=== PATIENT | female | born 1980 | race Asian ===

== ENCOUNTER 2019-01-29 16:16 | Inpatient (IN) | payer MEDICAID ==
[~2019-01-29] VITALS: Ht 152.4 cm; Wt 49.0 kg
[~2019-01-29 16:16] MED LIST: DULO20CA30 PO; LURA20TA PO; PANT40TA25 PO
[2019-01-29 20:40] VITALS: BP 132/105
[2019-01-29] MEDS: LORazepam 2 MG TABLET PO PRN (22:47)
[2019-01-29] MEDS: HALOPERIDOL 5 MG TABLET PO PRN (22:47)
[2019-01-29 23:00] VITALS: BP 127/87
[2019-01-30 00:05] VITALS: BP 128/90
[2019-01-30] MEDS: ZOLPIDEM TARTRATE 10 MG TABLET PO PRN (00:09)
[2019-01-30 07:14] LABS: BASOPHILS % (AUTO) 0.6 % (0.0-2.0); EOSINOPHILS % (AUTO) 1.3 % (1.0-6.0); HEMATOCRIT 41.1 % (36-46); HEMOGLOBIN 13.9 g/dL (12.0-16.0); LYMPHOCYTES # (AUTO) 2.3 K/uL (1.0-4.8); LYMPHOCYTES % (AUTO) 36.9 % (22.0-44.0); MEAN CORPUSCULAR HEMOGLOBIN 32.4 pg (26.0-34.0); MEAN CORPUSCULAR HGB CONC 33.9 G/dL (31.0-37.0); MEAN CORPUSCULAR VOLUME 96 fL (80-100); MONOCYTES # (AUTO) 1.1 K/uL (0.1-1.0); MONOCYTES % (AUTO) 18.3 % (2.0-9.0); NEUTROPHILS # (AUTO) 2.6 K/uL (1.8-7.7); NEUTROPHILS % (AUTO) 42.9 % (40.0-70.0); PLATELET COUNT (AUTO) 379 K/uL (150-450); RED CELL DISTRIBUTION WIDTH 13.1 % (11.5-14.5)
[2019-01-30 07:51] LABS: ALANINE AMINOTRANSFERASE 64 U/L (12-78); ALBUMIN 3.6 g/dL (3.4-5.0); ALKALINE PHOSPHATASE 134 U/L (46-116); ANION GAP 9 mmol/L (8-16); ASPARTATE AMINOTRANSFERASE 89 U/L (15-37); CALCIUM, TOTAL 9.3 mg/dL (8.8-10.5); CARBON DIOXIDE 29 mmol/L (22-29); CHLORIDE 99 mmol/L (98-107); CHOL/HDL RATIO 3.2 (3.9-5.7); CHOLESTEROL 191 mg/dL (131-200); CREATININE 0.82 mg/dL (0.60-1.30); FREE T4 (FREE THYROXINE) 1.36 ng/dL (0.76-1.46); GLOMERULAR FILTR. RATE CALC > 60 mL/min (>60); GLUCOSE,RANDOM 74 mg/dL (70-110); HCG,QUANTITATIVE < 1 mIU/mL (0-6); HDL CHOLESTEROL 59 mg/dL (40-60); LDL CHOL (CALC.) 119 mg/dL (0-130); POTASSIUM 3.9 mmol/L (3.5-5.1); SODIUM SERUM 137 mmol/L (136-145); TOTAL PROTEIN, SERUM 7.7 g/dL (6.4-8.2); TRIGLYCERIDES 63 mg/dL (15-150); UREA NITROGEN, BLOOD 11 mg/dL (7-18)
[2019-01-30] MEDS: LORazepam 2 MG TABLET PO PRN ×2 (12:04→19:23)
[2019-01-30] MEDS: HALOPERIDOL 5 MG TABLET PO PRN ×2 (12:04→19:23)
[2019-01-30 16:24] VITALS: BP 143/89
[2019-01-30] MEDS ORDERED: PETROLATUM,WHITE 28 GM JELLY TP PRN (17:30)
[2019-01-30] MEDS ORDERED: LOPERAMIDE HCL 2 MG CAPSULE PO PRN (17:30)
[2019-01-30] MEDS ORDERED: ONDANSETRON HCL 4 MG TABLET PO PRN (17:30)
[2019-01-30] MEDS ORDERED: DOCUSATE SODIUM 100 MG CAPSULE PO PRN (17:30)
[2019-01-30] MEDS ORDERED: ALBUTEROL SULFATE HFA 90 MCG/PUFF 8 GM INHALER IH PRN (17:30)
[2019-01-30] MEDS ORDERED: NICOTINE 14 MG/24 HOUR PATCH TD PRN (17:30)
[2019-01-30] MEDS ORDERED: CloNIDine HCL 0.1 MG TABLET PO PRN (17:30)
[2019-01-30] MEDS ORDERED: GuaiFENesin/D-METHORPHAN [SUGAR-FREE] 200-20MG/10 ML SYRUP UDCUP PO PRN (17:30)
[2019-01-30] MEDS ORDERED: MAGNESIUM HYDROXIDE SUSPENSION 30 ML UDCUP PO PRN (17:30)
[2019-01-30] MEDS ORDERED: MAG HYDROX/AL HYDROX/SIMETH ES 30 ML SUSPENSION UDCUP PO PRN (17:30)
[2019-01-30] MEDS ORDERED: ACETAMINOPHEN 325 MG TABLET PO PRN (17:30)
[2019-01-30] MEDS ORDERED: IBUPROFEN 400 MG TABLET PO PRN (17:30)
[2019-01-31 00:23] VITALS: BP 110/62
[2019-01-31] MEDS: PANTOPRAZOLE SODIUM 40 MG DR TABLET PO SCH (08:38)
[2019-01-31] MEDS: DULoxetine HCL 20 MG CAPSULE PO SCH (09:58)
[2019-01-31 16:18] VITALS: BP 130/80
[2019-01-31] MEDS ORDERED: LURASIDONE HCL 40 MG TABLET PO SCH (17:00)
[2019-01-31] MEDS: LORazepam 2 MG TABLET PO PRN (19:25)
[2019-01-31] MEDS: ZOLPIDEM TARTRATE 10 MG TABLET PO PRN (21:03)
[2019-02-01 06:15] VITALS: BP 133/88
[2019-02-01 08:11] VITALS: BP 106/79
[2019-02-01] MEDS: DULoxetine HCL 20 MG CAPSULE PO SCH (08:21)
[2019-02-01] MEDS: PANTOPRAZOLE SODIUM 40 MG DR TABLET PO SCH (08:22)
[2019-02-01] MEDS: LORazepam 2 MG TABLET PO PRN (10:01)
== END 2019-02-01 12:15 | disposition home or self-care (01) | DRG 750 ==
LOC: B2S 22:40
PROVIDERS: ATTEND Psychiatry & Neurology Child & Adolescent Psychiatry
DX: F20.0 Paranoid schizophrenia (principal); R74.0 Nonspecific elevation of levels of transaminase and lactic acid dehydrogenase [LDH]; B19.20 Unspecified viral hepatitis C without hepatic coma; K21.9 Gastro-esophageal reflux disease without esophagitis; F10.10 Alcohol abuse, uncomplicated; G89.29 Other chronic pain; F41.9 Anxiety disorder, unspecified; M54.9 Dorsalgia, unspecified; Z91.14 Patient's other noncompliance with medication regimen; Z88.0 Allergy status to penicillin
CPT/HCPCS: 84439; 84443; G0480

== ENCOUNTER 2019-02-06 10:15 | Emergency (ER) | payer MEDICAID, OTHER ==
[~2019-02-06] VITALS: Ht 154.9 cm; Wt 49.5 kg
[2019-02-06 11:00] VITALS: BP 153/99
[2019-02-06] MEDS ORDERED: LURA60TA PO (11:40)
[2019-02-06] MEDS ORDERED: LORazepam 1 MG TABLET PO ONE (11:45)
== END 2019-02-06 11:54 | disposition home or self-care (01) ==
LOC: EMS 10:17
DX: F41.9 Anxiety disorder, unspecified (principal); F15.10 Other stimulant abuse, uncomplicated; F17.210 Nicotine dependence, cigarettes, uncomplicated; Z88.0 Allergy status to penicillin

== ENCOUNTER 2019-02-06 13:55 | Emergency (ER) | payer OTHER ==
[~2019-02-06] VITALS: Ht 157.5 cm; Wt 49.5 kg
[~2019-02-06 13:55] MED LIST changes: +LURA60TA PO
[2019-02-06 14:16] VITALS: BP 129/94
== END 2019-02-06 15:10 | disposition left against medical advice (07) ==
LOC: EMS 13:57
DX: R51 Headache (principal); Z53.21 Procedure and treatment not carried out due to patient leaving prior to being seen by health care provider

== ENCOUNTER 2019-04-11 07:40 | Inpatient (IN) | payer MEDICAID ==
[~2019-04-11] VITALS: Ht 152.4 cm; Wt 47.7 kg
[~2019-04-11 07:40] MED LIST changes: -LURA20TA PO
[2019-04-11 08:12] VITALS: BP 156/76
[2019-04-11] MEDS ORDERED: OLANZapine 5 MG RAPDIS TABLET PO PRN (08:30)
[2019-04-11] MEDS: LORazepam 2 MG TABLET PO PRN (11:27)
[2019-04-11] MEDS ORDERED: PROMETHAZINE HCL 25 MG TABLET PO PRN (11:30)
[2019-04-11] MEDS ORDERED: HydrOXYzine PAMOATE 50 MG CAPSULE PO PRN (11:30)
[2019-04-11] MEDS ORDERED: ACETAMINOPHEN 325 MG TABLET PO PRN (11:30)
[2019-04-11] MEDS ORDERED: TUBERCULIN, PURIFIED PROTEIN DERIVATIVE 5 TU/0.1 ML SYRINGE ID ONE (11:30)
[2019-04-11] MEDS ORDERED: MAG HYDROX/AL HYDROX/SIMETH ES 30 ML SUSPENSION UDCUP PO PRN (11:30)
[2019-04-11] MEDS ORDERED: LOPERAMIDE HCL 2 MG CAPSULE PO PRN (11:30)
[2019-04-11] MEDS ORDERED: MAGNESIUM HYDROXIDE SUSPENSION 30 ML UDCUP PO PRN (11:30)
[2019-04-11] MEDS: GABAPENTIN 100 MG CAPSULE PO SCH ×3 (12:58→20:01)
[2019-04-11] MEDS: GuaiFENesin/D-METHORPHAN [SUGAR-FREE] 200-20MG/10 ML SYRUP UDCUP PO PRN (12:59)
[2019-04-11 16:15] VITALS: BP 118/81
[2019-04-11] MEDS: THIAMINE HCL 100 MG TABLET PO SCH (16:34)
[2019-04-11] MEDS: ZOLPIDEM TARTRATE 10 MG TABLET PO PRN (21:34)
[2019-04-12] MEDS: GuaiFENesin/D-METHORPHAN [SUGAR-FREE] 200-20MG/10 ML SYRUP UDCUP PO PRN (04:12)
[2019-04-12] MEDS ORDERED: LURASIDONE HCL 40 MG TABLET PO SCH (07:00)
[2019-04-12 08:14] LABS: BASOPHILS % (AUTO) 0.7 % (0.0-2.0); EOSINOPHILS % (AUTO) 1.9 % (1.0-6.0); HEMATOCRIT 38.8 % (36-46); LYMPHOCYTES # (AUTO) 1.7 K/uL (1.0-4.8); MEAN CORPUSCULAR HEMOGLOBIN 31.8 pg (26.0-34.0); MEAN CORPUSCULAR HGB CONC 33.5 G/dL (31.0-37.0); MEAN CORPUSCULAR VOLUME 95 fL (80-100); MONOCYTES # (AUTO) 1.1 K/uL (0.1-1.0); MONOCYTES % (AUTO) 19.3 % (2.0-9.0); NEUTROPHILS # (AUTO) 2.7 K/uL (1.8-7.7); NEUTROPHILS % (AUTO) 48.1 % (40.0-70.0); PLATELET COUNT (AUTO) 317 K/uL (150-450); RED CELL DISTRIBUTION WIDTH 13.3 % (11.5-14.5)
[2019-04-12] MEDS: NALTREXONE HCL 50 MG TABLET PO SCH (08:17)
[2019-04-12] MEDS: PANTOPRAZOLE SODIUM 40 MG DR TABLET PO SCH (08:17)
[2019-04-12] MEDS: GABAPENTIN 100 MG CAPSULE PO SCH ×2 (08:17→12:04)
[2019-04-12] MEDS: FOLIC ACID 1 MG TABLET PO SCH (08:17)
[2019-04-12] MEDS: THIAMINE HCL 100 MG TABLET PO SCH ×2 (08:17→17:44)
[2019-04-12] MEDS: MULTIVITAMINS WITH MINERALS, THERAPEUTIC TABLET PO SCH (08:17)
[2019-04-12 08:35] LABS: HEMOGLOBIN A1C 5.4 % (4.5-6.2)
[2019-04-12 08:51] LABS: ALANINE AMINOTRANSFERASE 62 U/L (12-78); ALBUMIN 3.1 g/dL (3.4-5.0); ALKALINE PHOSPHATASE 139 U/L (46-116); ANION GAP 8 mmol/L (8-16); ASPARTATE AMINOTRANSFERASE 79 U/L (15-37); BILIRUBIN,TOTAL 0.3 mg/dL (0.1-1.0); CALCIUM, TOTAL 8.8 mg/dL (8.8-10.5); CARBON DIOXIDE 28 mmol/L (22-29); CHLORIDE 102 mmol/L (98-107); CHOL/HDL RATIO 3.9 (3.9-5.7); CHOLESTEROL 181 mg/dL (131-200); CREATININE 0.85 mg/dL (0.60-1.30); FREE T4 (FREE THYROXINE) 1.11 ng/dL (0.76-1.46); GLOMERULAR FILTR. RATE CALC > 60 mL/min (>60); GLUCOSE,RANDOM 86 mg/dL (70-110); HCG,QUANTITATIVE < 1 mIU/mL (0-6); HDL CHOLESTEROL 46 mg/dL (40-60); LDL CHOL (CALC.) 126 mg/dL (0-130); POTASSIUM 3.2 mmol/L (3.5-5.1); SODIUM SERUM 138 mmol/L (136-145); THYROID STIMULATING HORMONE 0.66 uIU/mL (0.36-3.74); TOTAL PROTEIN, SERUM 6.9 g/dL (6.4-8.2); TRIGLYCERIDES 47 mg/dL (15-150); UREA NITROGEN, BLOOD 14 mg/dL (7-18)
[2019-04-12] MEDS ORDERED: DULoxetine HCL 20 MG CAPSULE PO SCH (09:00)
[2019-04-12] MEDS: GABAPENTIN 300 MG CAPSULE PO SCH ×2 (16:21→20:07)
[2019-04-12 16:28] VITALS: BP 113/72
[2019-04-12] MEDS ORDERED: POTASSIUM CHLORIDE 20 MEQ ER TABLET PO ONE (17:15)
[2019-04-12] MEDS: ZOLPIDEM TARTRATE 10 MG TABLET PO PRN (21:01)
[2019-04-13 03:59] VITALS: BP 124/92
[2019-04-13] MEDS: LORazepam 2 MG TABLET PO PRN (04:00)
[2019-04-13 08:13] LABS: ANION GAP 6 mmol/L (8-16); CALCIUM, TOTAL 8.7 mg/dL (8.8-10.5); CARBON DIOXIDE 28 mmol/L (22-29); CHLORIDE 104 mmol/L (98-107); CREATININE 0.77 mg/dL (0.60-1.30); GLOMERULAR FILTR. RATE CALC > 60 mL/min (>60); GLUCOSE,RANDOM 80 mg/dL (70-110); POTASSIUM 3.9 mmol/L (3.5-5.1); SODIUM SERUM 138 mmol/L (136-145); UREA NITROGEN, BLOOD 9 mg/dL (7-18)
[2019-04-13] MEDS: GABAPENTIN 300 MG CAPSULE PO SCH ×4 (08:26→20:27)
[2019-04-13] MEDS: FOLIC ACID 1 MG TABLET PO SCH (08:26)
[2019-04-13] MEDS: NALTREXONE HCL 50 MG TABLET PO SCH (08:26)
[2019-04-13] MEDS: ARIPiprazole 15 MG TABLET PO SCH (08:26)
[2019-04-13] MEDS: DULoxetine HCL 30 MG CAPSULE PO SCH (08:27)
[2019-04-13] MEDS: MULTIVITAMINS WITH MINERALS, THERAPEUTIC TABLET PO SCH (08:27)
[2019-04-13] MEDS: THIAMINE HCL 100 MG TABLET PO SCH ×2 (08:27→16:56)
[2019-04-13 08:29] VITALS: BP 113/64
[2019-04-13] MEDS: PANTOPRAZOLE SODIUM 40 MG DR TABLET PO SCH (11:51)
[2019-04-13 16:08] VITALS: BP 113/79
[2019-04-13] MEDS ORDERED: GABA-531 PO (16:42)
[2019-04-13] MEDS ORDERED: TRAZ-257 PO (16:42)
[2019-04-13] MEDS ORDERED: ARIP15TA2 PO (16:42)
[2019-04-13] MEDS ORDERED: NALT50TA PO (16:42)
[2019-04-13] MEDS ORDERED: DULO30CA2 PO (16:42)
[2019-04-13] MEDS: ZOLPIDEM TARTRATE 10 MG TABLET PO PRN (20:30)
[2019-04-14 01:42] VITALS: BP 115/86
[2019-04-14] MEDS ORDERED: PANT40TA25 PO ×2 (07:14→07:18)
[2019-04-14] MEDS: DULoxetine HCL 30 MG CAPSULE PO SCH (08:42)
[2019-04-14] MEDS: THIAMINE HCL 100 MG TABLET PO SCH (08:42)
[2019-04-14] MEDS: GABAPENTIN 300 MG CAPSULE PO SCH ×2 (08:42→13:09)
[2019-04-14] MEDS: ARIPiprazole 15 MG TABLET PO SCH (08:42)
[2019-04-14] MEDS: NALTREXONE HCL 50 MG TABLET PO SCH (08:43)
[2019-04-14] MEDS: MULTIVITAMINS WITH MINERALS, THERAPEUTIC TABLET PO SCH (08:43)
[2019-04-14] MEDS: PANTOPRAZOLE SODIUM 40 MG DR TABLET PO SCH (08:43)
[2019-04-14] MEDS: FOLIC ACID 1 MG TABLET PO SCH (08:43)
[2019-04-14 08:45] VITALS: BP 138/78
== END 2019-04-14 13:15 | disposition home or self-care (01) | DRG 750 ==
LOC: B2S 08:34
PROVIDERS: ADMIT Psychiatry & Neurology Psychiatry; ATTEND Psychiatry & Neurology Psychiatry
DX: F25.9 Schizoaffective disorder, unspecified (principal); Z91.19 Patient's noncompliance with other medical treatment and regimen; B19.20 Unspecified viral hepatitis C without hepatic coma; F12.90 Cannabis use, unspecified, uncomplicated; F15.90 Other stimulant use, unspecified, uncomplicated; F17.200 Nicotine dependence, unspecified, uncomplicated; G89.4 Chronic pain syndrome; K21.9 Gastro-esophageal reflux disease without esophagitis; Z88.0 Allergy status to penicillin; Z59.9 Problem related to housing and economic circumstances, unspecified; Z65.3 Problems related to other legal circumstances; Z82.49 Family history of ischemic heart disease and other diseases of the circulatory system; Z83.3 Family history of diabetes mellitus
CPT/HCPCS: 83036; 84439; 84443; 86592

== ENCOUNTER 2019-07-02 23:24 | Emergency (ER) | payer MEDICAID, OTHER ==
[~2019-07-02] VITALS: Ht 152.4 cm; Wt 50.0 kg
[~2019-07-02 23:24] MED LIST changes: +ARIP15TA2 PO; -DULO20CA30 PO; +DULO30CA2 PO; +GABA-531 PO; -LURA60TA PO; +NALT50TA PO; +TRAZ-257 PO
[2019-07-03 00:42] LABS: BASOPHILS % (AUTO) 0.5 % (0.0-2.0); EOSINOPHILS % (AUTO) 0.3 % (1.0-6.0); HEMATOCRIT 39.4 % (36-46); HEMOGLOBIN 13.2 g/dL (12.0-16.0); LYMPHOCYTES # (AUTO) 2.3 K/uL (1.0-4.8); LYMPHOCYTES % (AUTO) 27.5 % (22.0-44.0); MEAN CORPUSCULAR HEMOGLOBIN 30.7 pg (26.0-34.0); MEAN CORPUSCULAR HGB CONC 33.4 G/dL (31.0-37.0); MEAN CORPUSCULAR VOLUME 92 fL (80-100); MONOCYTES # (AUTO) 1.4 K/uL (0.1-1.0); MONOCYTES % (AUTO) 16.7 % (2.0-9.0); NEUTROPHILS # (AUTO) 4.5 K/uL (1.8-7.7); PLATELET COUNT (AUTO) 378 K/uL (150-450); RED CELL DISTRIBUTION WIDTH 12.8 % (11.5-14.5)
[2019-07-03] MEDS ORDERED: LORazepam 2 MG TABLET PO ONE (00:45)
[2019-07-03 01:03] LABS: ALANINE AMINOTRANSFERASE 48 U/L (12-78); ALKALINE PHOSPHATASE 106 U/L (46-116); ANION GAP 12 mmol/L (8-16); ASPARTATE AMINOTRANSFERASE 66 U/L (15-37); BILIRUBIN,TOTAL 0.6 mg/dL (0.1-1.0); CALCIUM, TOTAL 9.4 mg/dL (8.8-10.5); CARBON DIOXIDE 26 mmol/L (22-29); CHLORIDE 97 mmol/L (98-107); CREATININE 1.02 mg/dL (0.60-1.30); GLOMERULAR FILTR. RATE CALC 60 mL/min (>60); GLUCOSE,RANDOM 105 mg/dL (70-110); SODIUM SERUM 135 mmol/L (136-145); TOTAL PROTEIN, SERUM 8.4 g/dL (6.4-8.2); UREA NITROGEN, BLOOD 13 mg/dL (7-18)
[2019-07-03 01:15] LABS: POTASSIUM 2.9 mmol/L (3.5-5.1)
[2019-07-03] MEDS ORDERED: POTASSIUM CHLORIDE 10% 40 MEQ/30 ML LIQUID UDCUP PO ONE ×2 (01:30→01:50)
[2019-07-03 02:06] LABS: HCG,QUANTITATIVE < 1 mIU/mL (0-6)
[2019-07-03 02:33] VITALS: BP 127/81
[2019-07-04] MEDS ORDERED: GABA-533 PO (17:41)
== END 2019-07-03 02:36 | disposition home or self-care (01) ==
LOC: EMS 23:24
DX: F41.9 Anxiety disorder, unspecified (principal); E87.6 Hypokalemia; F15.10 Other stimulant abuse, uncomplicated; F17.210 Nicotine dependence, cigarettes, uncomplicated; Z88.0 Allergy status to penicillin
CPT/HCPCS: 36415; 80053; 84702; 85025; 99285; 99406; G0480

== ENCOUNTER 2019-07-04 12:51 | Inpatient (IN) | payer MEDICAID, OTHER ==
[~2019-07-04] VITALS: Ht 152.4 cm; Wt 51.3 kg
[2019-07-04 14:59] LABS: BASOPHILS % (AUTO) 0.8 % (0.0-2.0); EOSINOPHILS % (AUTO) 0.7 % (1.0-6.0); HEMATOCRIT 40.4 % (36-46); HEMOGLOBIN 13.2 g/dL (12.0-16.0); LYMPHOCYTES # (AUTO) 1.5 K/uL (1.0-4.8); LYMPHOCYTES % (AUTO) 28.6 % (22.0-44.0); MEAN CORPUSCULAR HEMOGLOBIN 30.4 pg (26.0-34.0); MEAN CORPUSCULAR HGB CONC 32.6 G/dL (31.0-37.0); MEAN CORPUSCULAR VOLUME 93 fL (80-100); MONOCYTES # (AUTO) 0.8 K/uL (0.1-1.0); MONOCYTES % (AUTO) 14.6 % (2.0-9.0); NEUTROPHILS % (AUTO) 55.3 % (40.0-70.0); PLATELET COUNT (AUTO) 381 K/uL (150-450); RED BLOOD CELL COUNT(AUTO) 4.33 MIL/uL (4.00-5.20); RED CELL DISTRIBUTION WIDTH 13.1 % (11.5-14.5)
[2019-07-04] MEDS ORDERED: LORazepam 1 MG TABLET PO ONE (15:15)
[2019-07-04 15:23] LABS: ANION GAP 6 mmol/L (8-16); CARBON DIOXIDE 28 mmol/L (22-29); CHLORIDE 101 mmol/L (98-107); GLOMERULAR FILTR. RATE CALC > 60 mL/min (>60); GLUCOSE,RANDOM 89 mg/dL (70-110); POTASSIUM 3.7 mmol/L (3.5-5.1); SODIUM SERUM 135 mmol/L (136-145); UREA NITROGEN, BLOOD 13 mg/dL (7-18)
[2019-07-04 15:31] LABS: ALANINE AMINOTRANSFERASE 51 U/L (12-78); ALBUMIN 3.8 g/dL (3.4-5.0); ALKALINE PHOSPHATASE 110 U/L (46-116); ASPARTATE AMINOTRANSFERASE 69 U/L (15-37); BILIRUBIN,TOTAL 0.3 mg/dL (0.1-1.0); HCG,QUANTITATIVE < 1 mIU/mL (0-6); TOTAL PROTEIN, SERUM 8.1 g/dL (6.4-8.2)
[2019-07-04] MEDS ORDERED: GABA-533 PO (17:41)
[2019-07-04] MEDS: ZOLPIDEM TARTRATE 10 MG TABLET PO PRN (20:37)
[2019-07-04] MEDS: HALOPERIDOL 5 MG TABLET PO PRN (20:37)
[2019-07-04 20:51] VITALS: BP 128/93
[2019-07-05 01:17] VITALS: BP 117/82
[2019-07-05 08:18] VITALS: BP 104/71
[2019-07-05 08:55] LABS: CHOL/HDL RATIO 4.6 (3.9-5.7)
[2019-07-05] MEDS ORDERED: OMEPRAZOLE 20 MG CAPSULE PO PRN (11:00)
[2019-07-05] MEDS ORDERED: DOCUSATE SODIUM 100 MG CAPSULE PO PRN (11:00)
[2019-07-05] MEDS ORDERED: IBUPROFEN 600 MG TABLET PO PRN (11:00)
[2019-07-05] MEDS ORDERED: BENZOCAINE/MENTHOL LOZENGE MM PRN (11:00)
[2019-07-05] MEDS ORDERED: ALBUTEROL SULFATE HFA 90 MCG/PUFF 8 GM INHALER IH PRN (11:00)
[2019-07-05] MEDS ORDERED: BACITRACIN 28.4 GM OINTMENT TP PRN (11:00)
[2019-07-05] MEDS ORDERED: CloNIDine HCL 0.1 MG TABLET PO PRN (11:00)
[2019-07-05] MEDS ORDERED: MAGNESIUM HYDROXIDE SUSPENSION 30 ML UDCUP PO PRN (11:00)
[2019-07-05] MEDS ORDERED: PETROLATUM,WHITE 28 GM JELLY TP PRN (11:00)
[2019-07-05] MEDS ORDERED: LOPERAMIDE HCL 2 MG CAPSULE PO PRN (11:00)
[2019-07-05] MEDS ORDERED: MAG HYDROX/AL HYDROX/SIMETH ES 30 ML SUSPENSION UDCUP PO PRN (11:00)
[2019-07-05] MEDS ORDERED: ONDANSETRON HCL 4 MG TABLET PO PRN (11:00)
[2019-07-05] MEDS: LORazepam 2 MG TABLET PO PRN (12:29)
[2019-07-05] MEDS: GABAPENTIN 400 MG CAPSULE PO SCH ×3 (12:29→21:16)
[2019-07-05 17:10] VITALS: BP 101/72
[2019-07-05] MEDS: TraZODone HCL 100 MG TABLET PO SCH (21:16)
[2019-07-06 04:40] VITALS: BP 100/76
[2019-07-06] MEDS: DULoxetine HCL 30 MG CAPSULE PO SCH (08:48)
[2019-07-06] MEDS: ARIPiprazole 15 MG TABLET PO SCH (08:48)
[2019-07-06] MEDS: GABAPENTIN 400 MG CAPSULE PO SCH ×4 (08:49→20:24)
[2019-07-06] MEDS: NALTREXONE HCL 50 MG TABLET PO SCH (08:49)
[2019-07-06] MEDS: LORazepam 2 MG TABLET PO PRN ×2 (10:10→17:43)
[2019-07-06 16:07] VITALS: BP 110/64
[2019-07-06] MEDS: TraZODone HCL 100 MG TABLET PO SCH (20:24)
[2019-07-07 03:28] VITALS: BP 120/66
[2019-07-07 08:22] VITALS: BP 124/53
[2019-07-07] MEDS: NALTREXONE HCL 50 MG TABLET PO SCH (08:38)
[2019-07-07] MEDS: DULoxetine HCL 30 MG CAPSULE PO SCH (08:38)
[2019-07-07] MEDS: GABAPENTIN 400 MG CAPSULE PO SCH ×4 (08:38→20:34)
[2019-07-07] MEDS: ARIPiprazole 15 MG TABLET PO SCH (08:38)
[2019-07-07] MEDS: ACETAMINOPHEN 325 MG TABLET PO PRN (11:31)
[2019-07-07 16:00] VITALS: BP 106/64
[2019-07-07] MEDS: TraZODone HCL 100 MG TABLET PO SCH (20:34)
[2019-07-08 01:30] VITALS: BP 129/82
[2019-07-08] MEDS: ZOLPIDEM TARTRATE 10 MG TABLET PO PRN ×2 (01:34→20:41)
[2019-07-08 08:18] VITALS: BP 115/72
[2019-07-08] MEDS: NALTREXONE HCL 50 MG TABLET PO SCH (08:55)
[2019-07-08] MEDS: GABAPENTIN 400 MG CAPSULE PO SCH ×4 (08:55→20:41)
[2019-07-08] MEDS: ARIPiprazole 15 MG TABLET PO SCH (08:55)
[2019-07-08] MEDS: DULoxetine HCL 30 MG CAPSULE PO SCH (08:55)
[2019-07-08] MEDS: LORazepam 2 MG TABLET PO PRN (12:05)
[2019-07-08 16:06] VITALS: BP 112/66
[2019-07-08] MEDS: TraZODone HCL 100 MG TABLET PO SCH (20:41)
[2019-07-09 06:22] VITALS: BP 105/73
[2019-07-09 08:22] VITALS: BP 118/90
[2019-07-09] MEDS: GABAPENTIN 400 MG CAPSULE PO SCH ×4 (09:01→21:10)
[2019-07-09] MEDS: NALTREXONE HCL 50 MG TABLET PO SCH (09:01)
[2019-07-09] MEDS: ARIPiprazole 15 MG TABLET PO SCH (09:01)
[2019-07-09] MEDS: DULoxetine HCL 30 MG CAPSULE PO SCH (09:01)
[2019-07-09] MEDS: LORazepam 2 MG TABLET PO PRN ×2 (09:06→16:14)
[2019-07-09 16:00] VITALS: BP 105/69
[2019-07-09] MEDS: TraZODone HCL 100 MG TABLET PO SCH (21:10)
[2019-07-09] MEDS: ZOLPIDEM TARTRATE 10 MG TABLET PO PRN (21:10)
[2019-07-10 01:25] VITALS: BP 99/72
[2019-07-10 08:18] VITALS: BP 116/63
[2019-07-10] MEDS: ARIPiprazole 15 MG TABLET PO SCH (09:19)
[2019-07-10] MEDS: NALTREXONE HCL 50 MG TABLET PO SCH (09:19)
[2019-07-10] MEDS: GABAPENTIN 400 MG CAPSULE PO SCH ×4 (09:19→20:57)
[2019-07-10] MEDS: DULoxetine HCL 30 MG CAPSULE PO SCH (09:19)
[2019-07-10] MEDS: LORazepam 2 MG TABLET PO PRN ×2 (09:23→17:13)
[2019-07-10] MEDS: HALOPERIDOL 5 MG TABLET PO PRN (10:34)
[2019-07-10 17:37] VITALS: BP 98/63
[2019-07-10] MEDS: ZOLPIDEM TARTRATE 10 MG TABLET PO PRN (20:57)
[2019-07-10] MEDS: TraZODone HCL 100 MG TABLET PO SCH (20:57)
[2019-07-11 03:21] VITALS: BP 107/62
[2019-07-11] MEDS: LORazepam 2 MG TABLET PO PRN ×4 (04:17→20:17)
[2019-07-11 08:39] VITALS: BP 127/68
[2019-07-11] MEDS: DULoxetine HCL 30 MG CAPSULE PO SCH (08:50)
[2019-07-11] MEDS: GABAPENTIN 400 MG CAPSULE PO SCH ×4 (08:50→20:17)
[2019-07-11] MEDS: NALTREXONE HCL 50 MG TABLET PO SCH (08:50)
[2019-07-11] MEDS: ARIPiprazole 15 MG TABLET PO SCH (08:50)
[2019-07-11 16:25] VITALS: BP 149/75
[2019-07-11] MEDS: TraZODone HCL 100 MG TABLET PO SCH (20:17)
[2019-07-11 21:17] VITALS: BP 105/65
[2019-07-12 04:34] VITALS: BP 100/67
[2019-07-12 08:13] VITALS: BP 112/63
[2019-07-12 08:19] LABS: BAND NEUTROPHILS % (MANUAL) 0 % (0-5)
[2019-07-12 08:29] LABS: HEMATOCRIT 36.8 % (36-46); HEMOGLOBIN 12.1 g/dL (12.0-16.0); MEAN CORPUSCULAR HEMOGLOBIN 30.9 pg (26.0-34.0); MEAN CORPUSCULAR HGB CONC 32.8 G/dL (31.0-37.0); MEAN CORPUSCULAR VOLUME 94 fL (80-100); PLATELET COUNT (AUTO) 381 K/uL (150-450); RED CELL DISTRIBUTION WIDTH 12.9 % (11.5-14.5)
[2019-07-12 08:43] LABS: ANION GAP 6 mmol/L (8-16); CALCIUM, TOTAL 9.4 mg/dL (8.8-10.5); CARBON DIOXIDE 28 mmol/L (22-29); CHLORIDE 105 mmol/L (98-107); CREATININE 0.82 mg/dL (0.60-1.30); GLOMERULAR FILTR. RATE CALC > 60 mL/min (>60); GLUCOSE,RANDOM 90 mg/dL (70-110); POTASSIUM 3.3 mmol/L (3.5-5.1); SODIUM SERUM 139 mmol/L (136-145); UREA NITROGEN, BLOOD 18 mg/dL (7-18)
[2019-07-12] MEDS: ARIPiprazole 15 MG TABLET PO SCH (08:52)
[2019-07-12] MEDS: DULoxetine HCL 30 MG CAPSULE PO SCH (08:52)
[2019-07-12] MEDS: GABAPENTIN 400 MG CAPSULE PO SCH ×4 (08:52→20:26)
[2019-07-12] MEDS: NALTREXONE HCL 50 MG TABLET PO SCH (08:52)
[2019-07-12 09:47] LABS: LYMPHOCYTES % (MANUAL) 54 % (22-44); MONOCYTES % (MANUAL) 3 % (2-9); SEGMENTED NEUTROPHILS % 43 % (40-70)
[2019-07-12 16:22] VITALS: BP 121/76
[2019-07-12] MEDS: LORazepam 2 MG TABLET PO PRN (17:57)
[2019-07-12] MEDS: ZOLPIDEM TARTRATE 10 MG TABLET PO PRN (20:26)
[2019-07-12] MEDS: TraZODone HCL 100 MG TABLET PO SCH (20:26)
[2019-07-12] MEDS ORDERED: POTASSIUM CHLORIDE 20 MEQ ER TABLET PO ONE (22:45)
[2019-07-13 01:22] VITALS: BP 100/72
[2019-07-13] MEDS: LORazepam 2 MG TABLET PO PRN ×3 (01:55→16:29)
[2019-07-13 07:57] LABS: BAND NEUTROPHILS % (MANUAL) 0 % (0-5)
[2019-07-13 08:09] VITALS: BP 100/67
[2019-07-13 08:17] LABS: HEMATOCRIT 39.1 % (36-46); HEMOGLOBIN 12.6 g/dL (12.0-16.0); MEAN CORPUSCULAR HEMOGLOBIN 29.9 pg (26.0-34.0); MEAN CORPUSCULAR HGB CONC 32.2 G/dL (31.0-37.0); MEAN CORPUSCULAR VOLUME 93 fL (80-100); PLATELET COUNT (AUTO) 387 K/uL (150-450); RED BLOOD CELL COUNT(AUTO) 4.21 MIL/uL (4.00-5.20); RED CELL DISTRIBUTION WIDTH 12.7 % (11.5-14.5)
[2019-07-13 08:17] LABS: AMPHET/METH SCREEN,URINE NEGATIVE (NEGATIVE); BARBITURATE SCREEN, URINE NEGATIVE (NEGATIVE); BENZODIAZEPINES SCREEN,URINE NEGATIVE (NEGATIVE); CANNABINOID SCREEN,URINE NEGATIVE (NEGATIVE); COCAINE SCREEN,URINE NEGATIVE (NEGATIVE); METHADONE SCREEN, URINE NEGATIVE (NEGATIVE); OPIATE SCREEN,URINE NEGATIVE (NEGATIVE)
[2019-07-13 08:18] LABS: APPEARANCE,URINE CLOUDY (CLEAR); BILIRUBIN,URINE NEGATIVE (NEGATIVE); GLUCOSE, URINE (UA) NEGATIVE (NEGATIVE); KETONES,URINE NEGATIVE (NEGATIVE); LEUKOCYTE ESTERASE ,URINE SMALL (NEGATIVE); NITRATE,URINE POSITIVE (NEGATIVE); OCCULT BLOOD,URINE NEGATIVE (NEGATIVE); PHENCYCLIDINE SCREEN,URINE NEGATIVE (NEGATIVE); PROTEIN,URINE NEGATIVE (NEGATIVE); UROBILINOGEN,URINE 0.2 mg/dL (<=1.0)
[2019-07-13 08:58] LABS: BACTERIA,URINE Many /HPF (None Seen); RBC,URINE None Seen /HPF (0-2); YEAST,URINE None Seen /HPF (None Seen)
[2019-07-13 08:59] LABS: SQUAMOUS EPITHELIAL CELL,UR Few /LPF (None Seen)
[2019-07-13] MEDS: DULoxetine HCL 30 MG CAPSULE PO SCH (09:06)
[2019-07-13] MEDS: ARIPiprazole 15 MG TABLET PO SCH (09:06)
[2019-07-13] MEDS: NALTREXONE HCL 50 MG TABLET PO SCH (09:06)
[2019-07-13] MEDS: GABAPENTIN 400 MG CAPSULE PO SCH ×4 (09:07→20:41)
[2019-07-13 09:44] LABS: LYMPHOCYTES % (MANUAL) 41 % (22-44); MONOCYTES % (MANUAL) 4 % (2-9); SEGMENTED NEUTROPHILS % 55 % (40-70)
[2019-07-13] MEDS: ACETAMINOPHEN 325 MG TABLET PO PRN (16:29)
[2019-07-13 16:54] VITALS: BP 126/68
[2019-07-13] MEDS: TraZODone HCL 100 MG TABLET PO SCH (20:41)
[2019-07-13] MEDS: ZOLPIDEM TARTRATE 10 MG TABLET PO PRN (20:41)
[2019-07-13] MEDS: PHENAZOPYRIDINE HCL 100 MG TABLET PO SCH (21:12)
[2019-07-14 06:05] VITALS: BP 112/72
[2019-07-14 08:17] VITALS: BP 110/69
[2019-07-14] MEDS: PHENAZOPYRIDINE HCL 100 MG TABLET PO SCH (08:22)
[2019-07-14] MEDS: GABAPENTIN 400 MG CAPSULE PO SCH ×2 (08:22→12:11)
[2019-07-14] MEDS: NALTREXONE HCL 50 MG TABLET PO SCH (08:22)
[2019-07-14] MEDS: ARIPiprazole 15 MG TABLET PO SCH (08:22)
[2019-07-14] MEDS: DULoxetine HCL 30 MG CAPSULE PO SCH (08:22)
[2019-07-14] MEDS: LORazepam 2 MG TABLET PO PRN (11:45)
[2019-07-14] MEDS ORDERED: PHEN-846 PO (12:49)
[2019-07-14] MEDS ORDERED: CEPH-582 PO (12:49)
== END 2019-07-14 13:00 | disposition home or self-care (01) | DRG 750 ==
LOC: EMS 12:53 → B3A 17:53
PROVIDERS: ADMIT Psychiatry & Neurology Psychiatry; ATTEND Psychiatry & Neurology Psychiatry
DX: F20.0 Paranoid schizophrenia (principal); Z91.14 Patient's other noncompliance with medication regimen; E78.5 Hyperlipidemia, unspecified; K21.9 Gastro-esophageal reflux disease without esophagitis; Z82.49 Family history of ischemic heart disease and other diseases of the circulatory system; Z87.891 Personal history of nicotine dependence; Z83.3 Family history of diabetes mellitus
CPT/HCPCS: 83735; 84100; 84132; 85007; 87086; G0480; Q0162

== ENCOUNTER 2019-07-23 12:03 | Inpatient (IN) | payer MEDICAID ==
[~2019-07-23] VITALS: Ht 152.4 cm; Wt 48.5 kg
[~2019-07-23 12:03] MED LIST changes: +CEPH-582 PO; +GABA-1201 PO; -GABA-531 PO; -PANT40TA25 PO; +PHEN-846 PO
[2019-07-23 13:04] VITALS: BP 139/82
[2019-07-23] MEDS: LORazepam 2 MG TABLET PO PRN (14:23)
[2019-07-23 14:28] VITALS: BP 125/85
[2019-07-23] MEDS ORDERED: PNEUMOCOCCAL VACCINE POLYVALENT 0.5 ML VIAL [PPSV23] IM ONE (14:45)
[2019-07-23 16:00] VITALS: BP 110/75
[2019-07-23] MEDS: GABAPENTIN 400 MG CAPSULE PO SCH (20:10)
[2019-07-23] MEDS ORDERED: TraZODone HCL 100 MG TABLET PO SCH (21:00)
[2019-07-24 00:12] VITALS: BP 102/63
[2019-07-24 07:15] LABS: BASOPHILS % (AUTO) 0.7 % (0.0-2.0); EOSINOPHILS % (AUTO) 2.1 % (1.0-6.0); HEMATOCRIT 39.5 % (36-46); LYMPHOCYTES # (AUTO) 1.8 K/uL (1.0-4.8); LYMPHOCYTES % (AUTO) 34.1 % (22.0-44.0); MEAN CORPUSCULAR HEMOGLOBIN 30.6 pg (26.0-34.0); MEAN CORPUSCULAR VOLUME 93 fL (80-100); MONOCYTES # (AUTO) 0.7 K/uL (0.1-1.0); MONOCYTES % (AUTO) 14.4 % (2.0-9.0); NEUTROPHILS # (AUTO) 2.5 K/uL (1.8-7.7); NEUTROPHILS % (AUTO) 48.7 % (40.0-70.0); PLATELET COUNT (AUTO) 398 K/uL (150-450); RED BLOOD CELL COUNT(AUTO) 4.25 MIL/uL (4.00-5.20); RED CELL DISTRIBUTION WIDTH 13.3 % (11.5-14.5)
[2019-07-24 07:47] LABS: ALANINE AMINOTRANSFERASE 28 U/L (12-78); ALBUMIN 3.3 g/dL (3.4-5.0); ALKALINE PHOSPHATASE 95 U/L (46-116); ANION GAP 9 mmol/L (8-16); ASPARTATE AMINOTRANSFERASE 35 U/L (15-37); BILIRUBIN,TOTAL 0.3 mg/dL (0.1-1.0); CARBON DIOXIDE 29 mmol/L (22-29); CHLORIDE 103 mmol/L (98-107); CHOL/HDL RATIO 4.1 (3.9-5.7); CHOLESTEROL 180 mg/dL (131-200); CREATININE 0.84 mg/dL (0.60-1.30); FREE T4 (FREE THYROXINE) 1.06 ng/dL (0.76-1.46); GLOMERULAR FILTR. RATE CALC > 60 mL/min (>60); GLUCOSE,RANDOM 90 mg/dL (70-110); HCG,QUANTITATIVE < 1 mIU/mL (0-6); HDL CHOLESTEROL 44 mg/dL (40-60); LDL CHOL (CALC.) 116 mg/dL (0-130); POTASSIUM 3.5 mmol/L (3.5-5.1); SODIUM SERUM 141 mmol/L (136-145); THYROID STIMULATING HORMONE 0.46 uIU/mL (0.36-3.74); TRIGLYCERIDES 101 mg/dL (15-150); UREA NITROGEN, BLOOD 22 mg/dL (7-18)
[2019-07-24] MEDS: GABAPENTIN 400 MG CAPSULE PO SCH ×3 (08:29→16:21)
[2019-07-24] MEDS: ARIPiprazole 15 MG TABLET PO SCH (08:29)
[2019-07-24] MEDS ORDERED: DULoxetine HCL 30 MG CAPSULE PO SCH (09:00)
[2019-07-24 10:35] VITALS: BP 100/60
[2019-07-24] MEDS: LORazepam 2 MG TABLET PO PRN (14:52)
[2019-07-24 19:21] VITALS: BP 92/61
[2019-07-24] MEDS: ZOLPIDEM TARTRATE 10 MG TABLET PO PRN (20:38)
[2019-07-25 00:21] VITALS: BP 102/68
[2019-07-25] MEDS: ARIPiprazole 15 MG TABLET PO SCH (08:20)
[2019-07-25] MEDS: DULoxetine HCL 20 MG CAPSULE PO SCH (08:20)
[2019-07-25] MEDS: GABAPENTIN 300 MG CAPSULE PO SCH ×3 (08:20→16:52)
[2019-07-25] MEDS: LORazepam 2 MG TABLET PO PRN ×3 (09:52→22:20)
[2019-07-25 10:02] VITALS: BP 100/60
[2019-07-25 17:54] VITALS: BP 103/77
[2019-07-26 00:33] VITALS: BP 99/68
[2019-07-26 08:03] VITALS: BP 98/68
[2019-07-26] MEDS: ARIPiprazole 15 MG TABLET PO SCH (08:25)
[2019-07-26] MEDS: GABAPENTIN 300 MG CAPSULE PO SCH ×3 (08:25→16:56)
[2019-07-26] MEDS: LORazepam 2 MG TABLET PO PRN ×2 (08:25→18:17)
[2019-07-26] MEDS: DULoxetine HCL 20 MG CAPSULE PO SCH (08:27)
[2019-07-26] MEDS: OXYBUTYNIN CHLORIDE 5 MG TABLET PO SCH ×3 (08:27→16:56)
[2019-07-26] MEDS ORDERED: CloNIDine HCL 0.1 MG TABLET PO PRN (10:00)
[2019-07-26] MEDS ORDERED: ACETAMINOPHEN 325 MG TABLET PO PRN (10:00)
[2019-07-26] MEDS ORDERED: MAG HYDROX/AL HYDROX/SIMETH ES 30 ML SUSPENSION UDCUP PO PRN (10:00)
[2019-07-26] MEDS ORDERED: DOCUSATE SODIUM 100 MG CAPSULE PO PRN (10:00)
[2019-07-26] MEDS ORDERED: LOPERAMIDE HCL 2 MG CAPSULE PO PRN (10:00)
[2019-07-26] MEDS ORDERED: BACITRACIN 28.4 GM OINTMENT TP PRN (10:00)
[2019-07-26] MEDS ORDERED: OMEPRAZOLE 20 MG CAPSULE PO PRN (10:00)
[2019-07-26] MEDS ORDERED: ALBUTEROL SULFATE HFA 90 MCG/PUFF 8 GM INHALER IH PRN (10:00)
[2019-07-26] MEDS ORDERED: PETROLATUM,WHITE 28 GM JELLY TP PRN (10:00)
[2019-07-26] MEDS ORDERED: ONDANSETRON HCL 4 MG TABLET PO PRN (10:00)
[2019-07-26] MEDS ORDERED: IBUPROFEN 600 MG TABLET PO PRN (10:00)
[2019-07-26] MEDS ORDERED: MAGNESIUM HYDROXIDE SUSPENSION 30 ML UDCUP PO PRN (10:00)
[2019-07-26] MEDS ORDERED: BENZOCAINE/MENTHOL LOZENGE MM PRN (10:00)
[2019-07-26 16:03] VITALS: BP 114/67
[2019-07-27 00:07] VITALS: BP 133/79
[2019-07-27] MEDS: ARIPiprazole 15 MG TABLET PO SCH (08:15)
[2019-07-27] MEDS: OXYBUTYNIN CHLORIDE 5 MG TABLET PO SCH ×3 (08:15→16:13)
[2019-07-27] MEDS: DULoxetine HCL 20 MG CAPSULE PO SCH (08:15)
[2019-07-27] MEDS: GABAPENTIN 300 MG CAPSULE PO SCH ×3 (08:16→16:13)
[2019-07-27 08:33] VITALS: BP 99/60
[2019-07-27] MEDS: LORazepam 2 MG TABLET PO PRN ×2 (09:49→14:54)
[2019-07-27 16:17] VITALS: BP 129/73
[2019-07-27] MEDS: ZOLPIDEM TARTRATE 10 MG TABLET PO PRN (22:09)
[2019-07-28 00:12] VITALS: BP 131/82
[2019-07-28 08:03] VITALS: BP 100/68
[2019-07-28] MEDS: ARIPiprazole 15 MG TABLET PO SCH (08:05)
[2019-07-28] MEDS: GABAPENTIN 300 MG CAPSULE PO SCH ×3 (08:05→16:06)
[2019-07-28] MEDS: OXYBUTYNIN CHLORIDE 5 MG TABLET PO SCH ×3 (08:05→16:06)
[2019-07-28] MEDS: DULoxetine HCL 20 MG CAPSULE PO SCH (08:05)
[2019-07-28 09:25] VITALS: BP 120/72
[2019-07-28] MEDS: LORazepam 2 MG TABLET PO PRN ×2 (09:25→14:34)
[2019-07-28 16:06] VITALS: BP 97/73
[2019-07-28] MEDS ORDERED: LORATADINE 10 MG TABLET PO PRN (16:15)
[2019-07-28] MEDS ORDERED: GuaiFENesin/D-METHORPHAN [SUGAR-FREE] 200-20MG/10 ML SYRUP UDCUP PO PRN (16:15)
[2019-07-28] MEDS: ZOLPIDEM TARTRATE 10 MG TABLET PO PRN (20:39)
[2019-07-29 00:06] VITALS: BP 95/61
[2019-07-29] MEDS: GABAPENTIN 300 MG CAPSULE PO SCH ×3 (08:07→17:09)
[2019-07-29] MEDS: OXYBUTYNIN CHLORIDE 5 MG TABLET PO SCH ×3 (08:07→17:09)
[2019-07-29] MEDS: DULoxetine HCL 20 MG CAPSULE PO SCH (08:07)
[2019-07-29] MEDS: LORazepam 2 MG TABLET PO PRN ×3 (08:07→20:41)
[2019-07-29] MEDS: ARIPiprazole 15 MG TABLET PO SCH (08:07)
[2019-07-29 08:19] VITALS: BP 109/68
[2019-07-29] MEDS: HALOPERIDOL 5 MG TABLET PO PRN (10:40)
[2019-07-29 16:17] VITALS: BP 112/69
[2019-07-29] MEDS: ZOLPIDEM TARTRATE 10 MG TABLET PO PRN (20:41)
[2019-07-30] MEDS: LORazepam 2 MG TABLET PO PRN ×2 (04:14→09:48)
[2019-07-30 04:39] VITALS: BP 120/66
[2019-07-30] MEDS: OXYBUTYNIN CHLORIDE 5 MG TABLET PO SCH ×3 (08:14→17:10)
[2019-07-30] MEDS: GABAPENTIN 300 MG CAPSULE PO SCH ×3 (08:15→17:10)
[2019-07-30] MEDS: DULoxetine HCL 20 MG CAPSULE PO SCH (08:15)
[2019-07-30] MEDS: ARIPiprazole 15 MG TABLET PO SCH (08:15)
[2019-07-30 08:18] VITALS: BP 120/69
[2019-07-30] MEDS: HALOPERIDOL 5 MG TABLET PO PRN (11:42)
[2019-07-30 16:26] VITALS: BP 100/52
[2019-07-30] MEDS: ZOLPIDEM TARTRATE 10 MG TABLET PO PRN (21:43)
[2019-07-31 05:53] VITALS: BP 107/62
[2019-07-31] MEDS: DULoxetine HCL 20 MG CAPSULE PO SCH (08:25)
[2019-07-31] MEDS: OXYBUTYNIN CHLORIDE 5 MG TABLET PO SCH ×3 (08:25→16:01)
[2019-07-31] MEDS: ARIPiprazole 15 MG TABLET PO SCH (08:25)
[2019-07-31] MEDS: GABAPENTIN 300 MG CAPSULE PO SCH ×3 (08:25→16:01)
[2019-07-31 08:28] VITALS: BP 106/62
[2019-07-31] MEDS: LORazepam 2 MG TABLET PO PRN ×3 (10:23→20:43)
[2019-07-31 17:32] VITALS: BP 100/60
[2019-07-31] MEDS: ZOLPIDEM TARTRATE 10 MG TABLET PO PRN (20:03)
[2019-08-01 00:35] VITALS: BP 98/58
[2019-08-01 01:13] VITALS: BP 100/68
[2019-08-01] MEDS: LORazepam 2 MG TABLET PO PRN (01:49)
[2019-08-01 05:58] VITALS: BP 115/65
[2019-08-01] MEDS: HALOPERIDOL 5 MG TABLET PO PRN (06:47)
[2019-08-01] MEDS: DULoxetine HCL 20 MG CAPSULE PO SCH (08:06)
[2019-08-01] MEDS: ARIPiprazole 15 MG TABLET PO SCH (08:06)
[2019-08-01] MEDS: GABAPENTIN 300 MG CAPSULE PO SCH ×2 (08:06→12:52)
[2019-08-01] MEDS: OXYBUTYNIN CHLORIDE 5 MG TABLET PO SCH ×2 (08:06→12:52)
[2019-08-01 08:18] VITALS: BP 133/62
[2019-08-01] MEDS ORDERED: GABA-1181 PO (12:45)
[2019-08-01] MEDS ORDERED: OXYB5TAB27 PO (12:48)
[2019-08-01] MEDS ORDERED: DULO20CA30 PO (12:48)
[2019-08-01] MEDS ORDERED: OXYBUTYNIN CHLORIDE 5 MG TABLET PO SCH (13:00)
[2019-08-01] MEDS ORDERED: GABAPENTIN 300 MG CAPSULE PO SCH (13:00)
[2019-08-02] MEDS ORDERED: DULoxetine HCL 20 MG CAPSULE PO SCH (09:00)
== END 2019-08-01 14:00 | disposition home or self-care (01) | DRG 750 ==
LOC: B2S 13:25 → B3A 07-29 00:05
PROVIDERS: ADMIT Psychiatry & Neurology Psychiatry; ATTEND Psychiatry & Neurology Psychiatry
DX: F25.9 Schizoaffective disorder, unspecified (principal); R45.851 Suicidal ideations; E78.5 Hyperlipidemia, unspecified; F10.10 Alcohol abuse, uncomplicated; F32.9 Major depressive disorder, single episode, unspecified; F41.9 Anxiety disorder, unspecified; Z83.3 Family history of diabetes mellitus; G89.29 Other chronic pain; M54.9 Dorsalgia, unspecified; K59.00 Constipation, unspecified; G47.00 Insomnia, unspecified; Z72.0 Tobacco use
CPT/HCPCS: 84439; 84443; 87081

== ENCOUNTER 2019-10-06 12:32 | Inpatient (IN) | payer MEDICAID, OTHER ==
[~2019-10-06] VITALS: Ht 154.9 cm; Wt 50.3 kg
[~2019-10-06 12:32] MED LIST changes: -CEPH-582 PO; +DULO20CA27 PO; -DULO30CA2 PO; +GABA-1181 PO; -GABA-1201 PO; -NALT50TA PO; +OXYB5TAB27 PO; -PHEN-846 PO; -TRAZ-257 PO
[2019-10-06] MEDS ORDERED: LORazepam 1 MG TABLET PO ONE (13:00)
[2019-10-06] MEDS ORDERED: DiphenhydrAMINE HCL 50 MG/ML VIAL IM ONE (13:00)
[2019-10-06] MEDS ORDERED: LORazepam 2 MG/ML VIAL IM ONE ×2 (13:00→13:15)
[2019-10-06] MEDS ORDERED: HALOPERIDOL LACTATE 5 MG/ML VIAL IM ONE ×2 (13:00→13:15)
[2019-10-06 13:07] LABS: BASOPHILS % (AUTO) 0.5 % (0.0-2.0); EOSINOPHILS % (AUTO) 0.5 % (1.0-6.0); HEMATOCRIT 39.7 % (36-46); HEMOGLOBIN 13.4 g/dL (12.0-16.0); LYMPHOCYTES # (AUTO) 1.8 K/uL (1.0-4.8); LYMPHOCYTES % (AUTO) 23.6 % (22.0-44.0); MEAN CORPUSCULAR HEMOGLOBIN 30.1 pg (26.0-34.0); MEAN CORPUSCULAR HGB CONC 33.7 G/dL (31.0-37.0); MEAN CORPUSCULAR VOLUME 89 fL (80-100); MONOCYTES # (AUTO) 0.9 K/uL (0.1-1.0); MONOCYTES % (AUTO) 12.2 % (2.0-9.0); NEUTROPHILS # (AUTO) 4.9 K/uL (1.8-7.7); NEUTROPHILS % (AUTO) 63.2 % (40.0-70.0); PLATELET COUNT (AUTO) 472 K/uL (150-450); RED BLOOD CELL COUNT(AUTO) 4.44 MIL/uL (4.00-5.20); RED CELL DISTRIBUTION WIDTH 14.6 % (11.5-14.5)
[2019-10-06 13:28] LABS: ANION GAP 13 mmol/L (8-16); CALCIUM, TOTAL 10.1 mg/dL (8.8-10.5); CARBON DIOXIDE 26 mmol/L (22-29); CHLORIDE 103 mmol/L (98-107); GLOMERULAR FILTR. RATE CALC > 60 mL/min (>60); GLUCOSE,RANDOM 120 mg/dL (70-110); POTASSIUM 4.3 mmol/L (3.5-5.1); SODIUM SERUM 142 mmol/L (136-145); UREA NITROGEN, BLOOD 13 mg/dL (7-18)
[2019-10-06 13:40] LABS: ALANINE AMINOTRANSFERASE 35 U/L (12-78); ALBUMIN 4.2 g/dL (3.4-5.0); ALKALINE PHOSPHATASE 99 U/L (46-116); ASPARTATE AMINOTRANSFERASE 51 U/L (15-37); BILIRUBIN,TOTAL 0.8 mg/dL (0.1-1.0); HCG,QUANTITATIVE 1 mIU/mL (0-6); TOTAL PROTEIN, SERUM 9.5 g/dL (6.4-8.2)
[2019-10-06 17:21] VITALS: BP 103/78
[2019-10-06] MEDS: NICOTINE 21 MG/24 HOUR PATCH TD SCH (17:32)
[2019-10-06] MEDS: HALOPERIDOL 5 MG TABLET PO PRN (17:32)
[2019-10-06] MEDS: LORazepam 2 MG TABLET PO PRN (17:32)
[2019-10-07 01:38] VITALS: BP 120/74
[2019-10-07] MEDS ORDERED: PETROLATUM,WHITE 28 GM JELLY TP PRN (07:00)
[2019-10-07] MEDS ORDERED: IBUPROFEN 600 MG TABLET PO PRN (07:00)
[2019-10-07] MEDS ORDERED: ACETAMINOPHEN 325 MG TABLET PO PRN (07:00)
[2019-10-07] MEDS ORDERED: ONDANSETRON HCL 4 MG TABLET PO PRN (07:00)
[2019-10-07] MEDS ORDERED: CloNIDine HCL 0.1 MG TABLET PO PRN (07:00)
[2019-10-07] MEDS ORDERED: DOCUSATE SODIUM 100 MG CAPSULE PO PRN (07:00)
[2019-10-07] MEDS ORDERED: OMEPRAZOLE 20 MG CAPSULE PO PRN (07:00)
[2019-10-07] MEDS ORDERED: BENZOCAINE/MENTHOL LOZENGE MM PRN (07:00)
[2019-10-07] MEDS ORDERED: LOPERAMIDE HCL 2 MG CAPSULE PO PRN (07:00)
[2019-10-07] MEDS ORDERED: MAGNESIUM HYDROXIDE SUSPENSION 30 ML UDCUP PO PRN (07:00)
[2019-10-07] MEDS ORDERED: ALBUTEROL SULFATE HFA 90 MCG/PUFF 8 GM INHALER IH PRN (07:00)
[2019-10-07] MEDS ORDERED: BACITRACIN 28.4 GM OINTMENT TP PRN (07:00)
[2019-10-07] MEDS ORDERED: MAG HYDROX/AL HYDROX/SIMETH ES 30 ML SUSPENSION UDCUP PO PRN (07:00)
[2019-10-07 08:28] VITALS: BP 118/70
[2019-10-07] MEDS: NICOTINE 21 MG/24 HOUR PATCH TD SCH (09:00)
[2019-10-07] MEDS: HALOPERIDOL 5 MG TABLET PO PRN (09:44)
[2019-10-07] MEDS: LORazepam 2 MG TABLET PO PRN (09:44)
[2019-10-07 16:17] VITALS: BP 112/72
[2019-10-08 06:42] VITALS: BP 93/63
[2019-10-08] MEDS: LORazepam 2 MG TABLET PO PRN ×2 (07:03→17:06)
[2019-10-08 08:07] VITALS: BP 105/62
[2019-10-08 08:21] LABS: CHOL/HDL RATIO 5.8 (3.9-5.7)
[2019-10-08] MEDS: NICOTINE 21 MG/24 HOUR PATCH TD SCH (08:54)
[2019-10-08] MEDS: ARIPiprazole 15 MG TABLET PO SCH (08:54)
[2019-10-08] MEDS: DULoxetine HCL 20 MG CAPSULE PO SCH (08:54)
[2019-10-08] MEDS: GABAPENTIN 300 MG CAPSULE PO SCH ×3 (08:54→17:06)
[2019-10-08 16:10] VITALS: BP 95/67
[2019-10-09] MEDS: ARIPiprazole 15 MG TABLET PO SCH (09:31)
[2019-10-09] MEDS: DULoxetine HCL 20 MG CAPSULE PO SCH (09:31)
[2019-10-09] MEDS: GABAPENTIN 300 MG CAPSULE PO SCH ×3 (09:31→16:46)
[2019-10-09] MEDS: NICOTINE 21 MG/24 HOUR PATCH TD SCH (09:32)
[2019-10-09 16:38] VITALS: BP 138/67
[2019-10-09] MEDS: LORazepam 2 MG TABLET PO PRN (16:46)
[2019-10-09] MEDS: ZOLPIDEM TARTRATE 10 MG TABLET PO PRN (21:36)
[2019-10-10 04:16] VITALS: BP 120/65
[2019-10-10 08:00] VITALS: BP 112/80
[2019-10-10] MEDS: DULoxetine HCL 20 MG CAPSULE PO SCH (08:51)
[2019-10-10] MEDS: GABAPENTIN 300 MG CAPSULE PO SCH ×3 (08:51→16:21)
[2019-10-10] MEDS: ARIPiprazole 15 MG TABLET PO SCH (08:51)
[2019-10-10] MEDS: OMEGA-3/DHA/EPA/FISH OIL 1,000 MG CAPSULE PO SCH (08:51)
[2019-10-10] MEDS: NICOTINE 21 MG/24 HOUR PATCH TD SCH (08:52)
[2019-10-10] MEDS: LORazepam 2 MG TABLET PO PRN ×2 (10:18→14:08)
[2019-10-10] MEDS: HALOPERIDOL 5 MG TABLET PO PRN (13:38)
[2019-10-10 17:37] VITALS: BP 107/62
[2019-10-10] MEDS: ZOLPIDEM TARTRATE 10 MG TABLET PO PRN (21:09)
[2019-10-11 01:23] VITALS: BP 102/78
[2019-10-11 08:10] VITALS: BP 116/88
[2019-10-11] MEDS: GABAPENTIN 300 MG CAPSULE PO SCH ×3 (08:10→16:30)
[2019-10-11] MEDS: ARIPiprazole 15 MG TABLET PO SCH (08:11)
[2019-10-11] MEDS: LORazepam 2 MG TABLET PO PRN ×2 (08:11→16:30)
[2019-10-11] MEDS: DULoxetine HCL 20 MG CAPSULE PO SCH (08:11)
[2019-10-11] MEDS: OMEGA-3/DHA/EPA/FISH OIL 1,000 MG CAPSULE PO SCH (08:11)
[2019-10-11] MEDS: NICOTINE 21 MG/24 HOUR PATCH TD SCH (08:11)
[2019-10-11] MEDS: HALOPERIDOL 5 MG TABLET PO PRN (12:40)
[2019-10-11 17:35] VITALS: BP 140/75
[2019-10-12] MEDS ORDERED: ASPIRIN 81 MG EC TABLET PO SCH (09:00)
== END 2019-10-11 19:40 | disposition home or self-care (01) | DRG 885 ==
LOC: EMS 12:32 → B3A 14:23
PROVIDERS: ADMIT Psychiatry & Neurology Psychiatry; ATTEND Psychiatry & Neurology Psychiatry
DX: F20.0 Paranoid schizophrenia (principal); R45.851 Suicidal ideations; F10.10 Alcohol abuse, uncomplicated; F15.90 Other stimulant use, unspecified, uncomplicated; F41.9 Anxiety disorder, unspecified; Z87.891 Personal history of nicotine dependence
CPT/HCPCS: G0480; J1630; J2060

== ENCOUNTER 2019-12-05 19:15 | Inpatient (IN) | payer MEDICAID ==
[~2019-12-05] VITALS: Ht 152.4 cm; Wt 113.0 kg
[~2019-12-05 19:15] MED LIST changes: -OXYB5TAB27 PO
[2019-12-06 05:50] VITALS: BP 140/92
[2019-12-06 07:54] LABS: BASOPHILS % (AUTO) 0.6 % (0.0-2.0); EOSINOPHILS % (AUTO) 1.2 % (1.0-6.0); HEMATOCRIT 40.4 % (36-46); HEMOGLOBIN 13.2 g/dL (12.0-16.0); LYMPHOCYTES # (AUTO) 2.5 K/uL (1.0-4.8); LYMPHOCYTES % (AUTO) 26.9 % (22.0-44.0); MEAN CORPUSCULAR HEMOGLOBIN 29.4 pg (26.0-34.0); MEAN CORPUSCULAR HGB CONC 32.6 G/dL (31.0-37.0); MEAN CORPUSCULAR VOLUME 90 fL (80-100); MONOCYTES # (AUTO) 1.1 K/uL (0.1-1.0); MONOCYTES % (AUTO) 11.8 % (2.0-9.0); NEUTROPHILS # (AUTO) 5.6 K/uL (1.8-7.7); NEUTROPHILS % (AUTO) 59.5 % (40.0-70.0); PLATELET COUNT (AUTO) 444 K/uL (150-450); RED BLOOD CELL COUNT(AUTO) 4.49 MIL/uL (4.00-5.20); RED CELL DISTRIBUTION WIDTH 15.3 % (11.5-14.5)
[2019-12-06 08:04] LABS: HEMOGLOBIN A1C 5.6 % (3.8-5.6)
[2019-12-06] MEDS ORDERED: BACITRACIN 28 GM OINTMENT TP PRN (08:15)
[2019-12-06] MEDS ORDERED: MAG HYDROX/AL HYDROX/SIMETH ES 30 ML SUSPENSION UDCUP PO PRN (08:15)
[2019-12-06] MEDS ORDERED: DOCUSATE SODIUM 100 MG CAPSULE PO PRN (08:15)
[2019-12-06] MEDS ORDERED: CloNIDine HCL 0.1 MG TABLET PO PRN (08:15)
[2019-12-06] MEDS ORDERED: ALBUTEROL SULFATE HFA 90 MCG/PUFF 8 GM INHALER IH PRN (08:15)
[2019-12-06] MEDS ORDERED: PETROLATUM,WHITE 28 GM JELLY TP PRN (08:15)
[2019-12-06] MEDS ORDERED: ACETAMINOPHEN 325 MG TABLET PO PRN (08:15)
[2019-12-06] MEDS ORDERED: LOPERAMIDE HCL 2 MG CAPSULE PO PRN (08:15)
[2019-12-06] MEDS ORDERED: OMEPRAZOLE 20 MG CAPSULE PO PRN (08:15)
[2019-12-06] MEDS ORDERED: MAGNESIUM HYDROXIDE SUSPENSION 30 ML UDCUP PO PRN (08:15)
[2019-12-06] MEDS ORDERED: BENZOCAINE/MENTHOL LOZENGE PO PRN (08:15)
[2019-12-06] MEDS ORDERED: ONDANSETRON HCL 4 MG TABLET PO PRN (08:15)
[2019-12-06 08:28] LABS: ALANINE AMINOTRANSFERASE 13 U/L (12-78); ALBUMIN 3.6 g/dL (3.4-5.0); ALKALINE PHOSPHATASE 104 U/L (46-116); ANION GAP 5 mmol/L (8-16); ASPARTATE AMINOTRANSFERASE 22 U/L (15-37); BILIRUBIN,TOTAL 0.2 mg/dL (0.1-1.0); CALCIUM, TOTAL 9.2 mg/dL (8.8-10.5); CARBON DIOXIDE 30 mmol/L (22-29); CHLORIDE 102 mmol/L (98-107); CHOL/HDL RATIO 3.6 (3.9-5.7); CHOLESTEROL 196 mg/dL (131-200); CREATININE 0.86 mg/dL (0.60-1.30); FREE T4 (FREE THYROXINE) 1.34 ng/dL (0.76-1.46); GLOMERULAR FILTR. RATE CALC > 60 mL/min (>60); GLUCOSE,RANDOM 113 mg/dL (70-110); HDL CHOLESTEROL 55 mg/dL (40-60); LDL CHOL (CALC.) 131 mg/dL (0-130); POTASSIUM 3.6 mmol/L (3.5-5.1); SODIUM SERUM 137 mmol/L (136-145); THYROID STIMULATING HORMONE 0.84 uIU/mL (0.36-3.74); TOTAL PROTEIN, SERUM 7.7 g/dL (6.4-8.2); TRIGLYCERIDES 50 mg/dL (15-150); UREA NITROGEN, BLOOD 9 mg/dL (7-18)
[2019-12-06 08:29] VITALS: BP 129/76
[2019-12-06] MEDS: GABAPENTIN 300 MG CAPSULE PO SCH ×3 (08:39→16:25)
[2019-12-06] MEDS: DULoxetine HCL 20 MG CAPSULE PO SCH (08:39)
[2019-12-06] MEDS: ARIPiprazole 15 MG TABLET PO SCH (08:39)
[2019-12-06 16:11] VITALS: BP 107/60
[2019-12-07 01:14] VITALS: BP 102/64
[2019-12-07 08:23] VITALS: BP 112/64
[2019-12-07] MEDS: ARIPiprazole 15 MG TABLET PO SCH (08:51)
[2019-12-07] MEDS: DULoxetine HCL 20 MG CAPSULE PO SCH (08:51)
[2019-12-07] MEDS: GABAPENTIN 300 MG CAPSULE PO SCH ×3 (08:51→16:32)
[2019-12-07] MEDS: IBUPROFEN 600 MG TABLET PO PRN (14:05)
[2019-12-07 16:06] VITALS: BP 107/65
[2019-12-07] MEDS: HALOPERIDOL 5 MG TABLET PO PRN (16:55)
[2019-12-07] MEDS: LORazepam 2 MG TABLET PO PRN (16:55)
[2019-12-08] MEDS: ZOLPIDEM TARTRATE 10 MG TABLET PO PRN (00:35)
[2019-12-08] MEDS: IBUPROFEN 600 MG TABLET PO PRN ×2 (00:37→10:38)
[2019-12-08 01:07] VITALS: BP 101/70
[2019-12-08 07:57] VITALS: BP 105/59
[2019-12-08] MEDS: DULoxetine HCL 20 MG CAPSULE PO SCH (08:17)
[2019-12-08] MEDS: ARIPiprazole 15 MG TABLET PO SCH (08:17)
[2019-12-08] MEDS: GABAPENTIN 300 MG CAPSULE PO SCH ×3 (08:17→16:07)
[2019-12-08 08:36] VITALS: BP 105/59
[2019-12-08] MEDS: LORazepam 2 MG TABLET PO PRN ×2 (10:38→17:01)
[2019-12-08 17:29] VITALS: BP 102/62
[2019-12-09 03:48] VITALS: BP 100/60
[2019-12-09] MEDS: GABAPENTIN 300 MG CAPSULE PO SCH ×3 (07:41→17:11)
[2019-12-09] MEDS: ARIPiprazole 15 MG TABLET PO SCH (07:41)
[2019-12-09] MEDS: DULoxetine HCL 20 MG CAPSULE PO SCH (07:41)
[2019-12-09] MEDS: LORazepam 2 MG TABLET PO PRN ×2 (07:57→17:20)
[2019-12-09] MEDS: HALOPERIDOL 5 MG TABLET PO PRN (07:57)
[2019-12-09 08:17] VITALS: BP 110/66
[2019-12-09 11:56] VITALS: BP 115/70
[2019-12-09] MEDS: IBUPROFEN 600 MG TABLET PO PRN ×2 (11:56→17:21)
[2019-12-09 16:16] VITALS: BP 118/76
[2019-12-09] MEDS: ZOLPIDEM TARTRATE 10 MG TABLET PO PRN (22:01)
[2019-12-10 01:55] VITALS: BP 105/71
[2019-12-10] MEDS: GABAPENTIN 300 MG CAPSULE PO SCH (08:06)
[2019-12-10] MEDS: DULoxetine HCL 20 MG CAPSULE PO SCH (08:07)
[2019-12-10] MEDS: ARIPiprazole 15 MG TABLET PO SCH (08:07)
[2019-12-10 08:10] VITALS: BP 100/60
== END 2019-12-10 10:15 | disposition home or self-care (01) | DRG 750 ==
LOC: B3A 22:47
PROVIDERS: ADMIT Psychiatry & Neurology Psychiatry; ATTEND Psychiatry & Neurology Psychiatry
DX: F25.9 Schizoaffective disorder, unspecified (principal); R45.851 Suicidal ideations; F41.9 Anxiety disorder, unspecified; K59.00 Constipation, unspecified; G47.00 Insomnia, unspecified; F19.10 Other psychoactive substance abuse, uncomplicated; F10.231 Alcohol dependence with withdrawal delirium; Z59.0 Homelessness; Z79.899 Other long term (current) drug therapy; Z72.0 Tobacco use
CPT/HCPCS: 83036; 84436; 84439; 84443; 86592

== ENCOUNTER 2019-12-05 22:43 | Emergency (ER) | payer MEDICAID, OTHER ==
[~2019-12-05] VITALS: Ht 142.2 cm; Wt 54.5 kg
[2019-12-05 23:53] LABS: COVID AG,FIA SOURCE NASOPHARYNGEAL
[2019-12-05 23:54] LABS: BASOPHILS % (AUTO) 0.7 % (0.0-2.0); EOSINOPHILS % (AUTO) 0.2 % (1.0-6.0); HEMATOCRIT 40.8 % (36-46); HEMOGLOBIN 13.3 g/dL (12.0-16.0); LYMPHOCYTES # (AUTO) 1.9 K/uL (1.0-4.8); LYMPHOCYTES % (AUTO) 16.4 % (22.0-44.0); MEAN CORPUSCULAR HEMOGLOBIN 29.3 pg (26.0-34.0); MEAN CORPUSCULAR HGB CONC 32.7 G/dL (31.0-37.0); MEAN CORPUSCULAR VOLUME 90 fL (80-100); MONOCYTES # (AUTO) 0.9 K/uL (0.1-1.0); NEUTROPHILS # (AUTO) 8.8 K/uL (1.8-7.7); NEUTROPHILS % (AUTO) 74.7 % (40.0-70.0); PLATELET COUNT (AUTO) 482 K/uL (150-450); RED BLOOD CELL COUNT(AUTO) 4.55 MIL/uL (4.00-5.20); RED CELL DISTRIBUTION WIDTH 15.5 % (11.5-14.5)
[2019-12-06 00:04] LABS: AMPHET/METH SCREEN,URINE POSITIVE (NEGATIVE); BARBITURATE SCREEN, URINE NEGATIVE (NEGATIVE); BENZODIAZEPINES SCREEN,URINE NEGATIVE (NEGATIVE); CANNABINOID SCREEN,URINE NEGATIVE (NEGATIVE); COCAINE SCREEN,URINE NEGATIVE (NEGATIVE); METHADONE SCREEN, URINE NEGATIVE (NEGATIVE); OPIATE SCREEN,URINE NEGATIVE (NEGATIVE)
[2019-12-06 00:08] LABS: PHENCYCLIDINE SCREEN,URINE NEGATIVE (NEGATIVE)
[2019-12-06 00:16] LABS: ALANINE AMINOTRANSFERASE 13 U/L (12-78); ALBUMIN 4.2 g/dL (3.4-5.0); ALKALINE PHOSPHATASE 107 U/L (46-116); ANION GAP 7 mmol/L (8-16); ASPARTATE AMINOTRANSFERASE 30 U/L (15-37); BILIRUBIN,TOTAL 0.4 mg/dL (0.1-1.0); CALCIUM, TOTAL 9.6 mg/dL (8.8-10.5); CARBON DIOXIDE 29 mmol/L (22-29); CREATININE 0.92 mg/dL (0.60-1.30); GLOMERULAR FILTR. RATE CALC > 60 mL/min (>60); GLUCOSE,RANDOM 107 mg/dL (70-110); HCG,QUANTITATIVE 1 mIU/mL (0-6); TOTAL PROTEIN, SERUM 8.6 g/dL (6.4-8.2); UREA NITROGEN, BLOOD 9 mg/dL (7-18)
[2019-12-06 00:19] LABS: CHLORIDE 96 mmol/L (98-107); POTASSIUM 3.1 mmol/L (3.5-5.1); SODIUM SERUM 132 mmol/L (136-145)
[2019-12-06] MEDS ORDERED: POTASSIUM CHLORIDE 10% 40 MEQ/30 ML LIQUID UDCUP PO ONE (00:45)
[2019-12-06] MEDS ORDERED: LORazepam 2 MG TABLET PO ONE (00:45)
[2019-12-06 01:11] VITALS: BP 135/92
== END 2019-12-06 03:07 | disposition other institution (70) ==
LOC: EMS 22:45
DX: F25.9 Schizoaffective disorder, unspecified (principal); F15.10 Other stimulant abuse, uncomplicated; E86.9 Volume depletion, unspecified; F17.210 Nicotine dependence, cigarettes, uncomplicated; Z79.899 Other long term (current) drug therapy
CPT/HCPCS: 36415; 80053; 80307; 84702; 85025; 87426; 99284; G0480

== ENCOUNTER 2020-08-06 07:37 | Emergency (ER) | payer MEDICAID, OTHER ==
[~2020-08-06] VITALS: Ht 152.4 cm; Wt 59.1 kg
[~2020-08-06 07:37] MED LIST changes: -ARIP15TA2 PO; +ARIP15TA27 PO
[2020-08-06] MEDS ORDERED: LORazepam 1 MG TABLET PO ONE (08:15)
[2020-08-06 08:28] LABS: AMPHET/METH SCREEN,URINE POSITIVE (NEGATIVE); BARBITURATE SCREEN, URINE NEGATIVE (NEGATIVE); BENZODIAZEPINES SCREEN,URINE NEGATIVE (NEGATIVE); CANNABINOID SCREEN,URINE NEGATIVE (NEGATIVE); COCAINE SCREEN,URINE NEGATIVE (NEGATIVE); METHADONE SCREEN, URINE NEGATIVE (NEGATIVE); OPIATE SCREEN,URINE NEGATIVE (NEGATIVE)
[2020-08-06 08:29] LABS: PHENCYCLIDINE SCREEN,URINE NEGATIVE (NEGATIVE)
[2020-08-06 08:31] LABS: BASOPHILS % (AUTO) 0.7 % (0.0-2.0); EOSINOPHILS % (AUTO) 0.4 % (1.0-6.0); HEMATOCRIT 41.2 % (36-46); HEMOGLOBIN 13.7 g/dL (12.0-16.0); LYMPHOCYTES # (AUTO) 1.8 K/uL (1.0-4.8); LYMPHOCYTES % (AUTO) 13.2 % (22.0-44.0); MEAN CORPUSCULAR HEMOGLOBIN 29.3 pg (26.0-34.0); MEAN CORPUSCULAR HGB CONC 33.1 G/dL (31.0-37.0); MEAN CORPUSCULAR VOLUME 88 fL (80-100); MONOCYTES # (AUTO) 1.3 K/uL (0.1-1.0); MONOCYTES % (AUTO) 9.5 % (2.0-9.0); NEUTROPHILS # (AUTO) 10.6 K/uL (1.8-7.7); NEUTROPHILS % (AUTO) 76.2 % (40.0-70.0); PLATELET COUNT (AUTO) 466 K/uL (150-450); RED BLOOD CELL COUNT(AUTO) 4.67 MIL/uL (4.00-5.20); RED CELL DISTRIBUTION WIDTH 15.2 % (11.5-14.5)
[2020-08-06 08:51] LABS: COVID AG,FIA SOURCE NASOPHARYNGEAL
[2020-08-06 08:53] LABS: ANION GAP 11 mmol/L (8-16); CALCIUM, TOTAL 8.8 mg/dL (8.8-10.5); CARBON DIOXIDE 26 mmol/L (22-29); CHLORIDE 104 mmol/L (98-107); CREATININE 0.85 mg/dL (0.60-1.30); GLOMERULAR FILTR. RATE CALC > 60 mL/min (>60); GLUCOSE,RANDOM 95 mg/dL (70-110); POTASSIUM 3.4 mmol/L (3.5-5.1); SODIUM SERUM 141 mmol/L (136-145); UREA NITROGEN, BLOOD 10 mg/dL (7-18)
[2020-08-06 09:19] LABS: ALANINE AMINOTRANSFERASE 14 U/L (12-78); ALBUMIN 3.9 g/dL (3.4-5.0); ALKALINE PHOSPHATASE 131 U/L (46-116); ASPARTATE AMINOTRANSFERASE 27 U/L (15-37); BILIRUBIN,TOTAL 0.3 mg/dL (0.1-1.0); HCG,QUANTITATIVE < 1 mIU/mL (0-6); TOTAL PROTEIN, SERUM 7.8 g/dL (6.4-8.2)
[2020-08-06 10:00] VITALS: BP 134/72
== END 2020-08-06 10:31 | disposition home or self-care (01) ==
LOC: EMS 07:42
DX: F41.9 Anxiety disorder, unspecified (principal); F17.210 Nicotine dependence, cigarettes, uncomplicated; F15.90 Other stimulant use, unspecified, uncomplicated; F25.9 Schizoaffective disorder, unspecified; F15.10 Other stimulant abuse, uncomplicated; Z20.822 Contact with and (suspected) exposure to COVID-19
CPT/HCPCS: 36415; 80053; 80307; 84702; 85025; 87426; 99283; G0480

== ENCOUNTER 2020-08-27 14:40 | Emergency (ER) | payer OTHER ==
[~2020-08-27] VITALS: Ht 152.4 cm; Wt 56.8 kg
[2020-08-27 15:30] LABS: AMPHET/METH SCREEN,URINE POSITIVE (NEGATIVE); BARBITURATE SCREEN, URINE NEGATIVE (NEGATIVE); BENZODIAZEPINES SCREEN,URINE NEGATIVE (NEGATIVE); CANNABINOID SCREEN,URINE NEGATIVE (NEGATIVE); COCAINE SCREEN,URINE NEGATIVE (NEGATIVE); METHADONE SCREEN, URINE NEGATIVE (NEGATIVE); OPIATE SCREEN,URINE NEGATIVE (NEGATIVE); PHENCYCLIDINE SCREEN,URINE NEGATIVE (NEGATIVE)
[2020-08-27] MEDS ORDERED: LORazepam 2 MG/ML VIAL IM ONE (15:30)
[2020-08-27 15:40] LABS: BASOPHILS % (AUTO) 0.5 % (0.0-2.0); EOSINOPHILS % (AUTO) 0.6 % (1.0-6.0); HEMATOCRIT 38.7 % (36-46); HEMOGLOBIN 12.6 g/dL (12.0-16.0); LYMPHOCYTES # (AUTO) 2.5 K/uL (1.0-4.8); LYMPHOCYTES % (AUTO) 28.1 % (22.0-44.0); MEAN CORPUSCULAR HGB CONC 32.6 G/dL (31.0-37.0); MEAN CORPUSCULAR VOLUME 89 fL (80-100); MONOCYTES % (AUTO) 11.4 % (2.0-9.0); NEUTROPHILS # (AUTO) 5.3 K/uL (1.8-7.7); NEUTROPHILS % (AUTO) 59.4 % (40.0-70.0); PLATELET COUNT (AUTO) 477 K/uL (150-450); RED BLOOD CELL COUNT(AUTO) 4.36 MIL/uL (4.00-5.20); RED CELL DISTRIBUTION WIDTH 14.8 % (11.5-14.5)
[2020-08-27 15:49] LABS: ANION GAP 23 mmol/L (8-16); CARBON DIOXIDE 24 mmol/L (22-29); CHLORIDE 100 mmol/L (98-107); GLOMERULAR FILTR. RATE CALC > 60 mL/min (>60); GLUCOSE,RANDOM 104 mg/dL (70-110); POTASSIUM 3.2 mmol/L (3.5-5.1); SODIUM SERUM 147 mmol/L (136-145); UREA NITROGEN, BLOOD 9 mg/dL (7-18)
[2020-08-27] MEDS ORDERED: POTASSIUM CHLORIDE 20 MEQ ER TABLET PO ONE (16:00)
[2020-08-27 16:02] LABS: ALANINE AMINOTRANSFERASE 13 U/L (12-78); ALBUMIN 3.7 g/dL (3.4-5.0); ALKALINE PHOSPHATASE 124 U/L (46-116); ASPARTATE AMINOTRANSFERASE 27 U/L (15-37); BILIRUBIN,TOTAL 0.4 mg/dL (0.1-1.0); HCG,QUANTITATIVE < 1 mIU/mL (0-6); TOTAL PROTEIN, SERUM 7.8 g/dL (6.4-8.2)
[2020-08-27 18:26] LABS: COVID AG,FIA SOURCE NASOPHARYNGEAL
[2020-08-28 01:15] VITALS: BP 118/76
== END 2020-08-28 01:51 | disposition home or self-care (01) ==
LOC: EMS 14:48
DX: F20.9 Schizophrenia, unspecified (principal); Z20.822 Contact with and (suspected) exposure to COVID-19; R10.2 Pelvic and perineal pain
CPT/HCPCS: 36415; 80053; 80307; 84702; 85025; 87426; 99285; G0480; J2060

== ENCOUNTER 2020-08-30 02:47 | Emergency (ER) | payer OTHER ==
[~2020-08-30] VITALS: Ht 152.4 cm; Wt 56.8 kg
[2020-08-30] MEDS ORDERED: DiphenhydrAMINE HCL 50 MG/ML VIAL IM ONE (03:00)
[2020-08-30] MEDS ORDERED: LORazepam 2 MG/ML VIAL IM ONE (03:00)
[2020-08-30] MEDS ORDERED: HALOPERIDOL LACTATE 5 MG/ML VIAL IM ONE (03:00)
[2020-08-30] MEDS ORDERED: ACETAMINOPHEN 325 MG TABLET PO ONE (04:00)
[2020-08-30 04:25] LABS: BASOPHILS % (AUTO) 0.6 % (0.0-2.0); EOSINOPHILS % (AUTO) 0.7 % (1.0-6.0); HEMATOCRIT 39.3 % (36-46); HEMOGLOBIN 12.5 g/dL (12.0-16.0); LYMPHOCYTES # (AUTO) 1.5 K/uL (1.0-4.8); LYMPHOCYTES % (AUTO) 24.4 % (22.0-44.0); MEAN CORPUSCULAR HEMOGLOBIN 28.5 pg (26.0-34.0); MEAN CORPUSCULAR HGB CONC 31.8 G/dL (31.0-37.0); MEAN CORPUSCULAR VOLUME 90 fL (80-100); MONOCYTES # (AUTO) 0.6 K/uL (0.1-1.0); MONOCYTES % (AUTO) 9.3 % (2.0-9.0); NEUTROPHILS # (AUTO) 3.9 K/uL (1.8-7.7); PLATELET COUNT (AUTO) 458 K/uL (150-450); RED BLOOD CELL COUNT(AUTO) 4.39 MIL/uL (4.00-5.20); RED CELL DISTRIBUTION WIDTH 14.9 % (11.5-14.5)
[2020-08-30 04:47] LABS: ANION GAP 11 mmol/L (8-16); CARBON DIOXIDE 26 mmol/L (22-29); CHLORIDE 101 mmol/L (98-107); CREATININE 0.98 mg/dL (0.60-1.30); GLOMERULAR FILTR. RATE CALC > 60 mL/min (>60); GLUCOSE,RANDOM 119 mg/dL (70-110); SODIUM SERUM 138 mmol/L (136-145); UREA NITROGEN, BLOOD 11 mg/dL (7-18)
[2020-08-30 05:00] LABS: ALANINE AMINOTRANSFERASE 15 U/L (12-78); ALBUMIN 3.8 g/dL (3.4-5.0); ALKALINE PHOSPHATASE 112 U/L (46-116); ASPARTATE AMINOTRANSFERASE 29 U/L (15-37); BILIRUBIN,TOTAL 0.3 mg/dL (0.1-1.0); TOTAL PROTEIN, SERUM 7.4 g/dL (6.4-8.2)
[2020-08-30] MEDS ORDERED: POTASSIUM CHLORIDE 20 MEQ ER TABLET PO ONE (05:00)
[2020-08-30 05:27] LABS: HCG,QUANTITATIVE < 1 mIU/mL (0-6)
[2020-08-30 10:58] VITALS: BP 116/79
== END 2020-08-30 10:57 | disposition home or self-care (01) ==
LOC: EMS 02:47
DX: F25.9 Schizoaffective disorder, unspecified (principal); E87.6 Hypokalemia; F15.90 Other stimulant use, unspecified, uncomplicated; F17.210 Nicotine dependence, cigarettes, uncomplicated; F41.9 Anxiety disorder, unspecified; Z88.0 Allergy status to penicillin
CPT/HCPCS: 36415; 80053; 84702; 85025; 96372; 99284; G0480; J1200; J1630; J2060

== ENCOUNTER 2025-01-29 18:50 | Inpatient (IN) | payer MEDICAID, OTHER ==
[~2025-01-29] VITALS: Ht 152.4 cm; Wt 49.4 kg
[~2025-01-29 18:50] MED LIST changes: +DULO20CA23 PO; -DULO20CA27 PO
[2025-01-29 19:18] LABS: COVID AG,FIA SOURCE NASAL SWAB
[2025-01-29 19:44] LABS: PLATELET COUNT (AUTO) 481 K/uL (150-450); RED BLOOD CELL COUNT(AUTO) 4.70 MIL/uL (4.00-5.20); RED CELL DISTRIBUTION WIDTH 14.7 % (11.5-14.5); WHITE BLOOD COUNT (AUTO) 9.5 K/uL (4.5-11.0)
[2025-01-29 19:49] LABS: CALCIUM, TOTAL 9.1 mg/dL (8.8-10.5); CREATININE 1.09 mg/dL (0.60-1.30); GLOMERULAR FILTR. RATE CALC 54.0 mL/min (>60); GLUCOSE,RANDOM 131.0 mg/dL (70-110); SODIUM SERUM 138.0 mmol/L (136-145); UREA NITROGEN, BLOOD 10.0 mg/dL (7-18)
[2025-01-29 20:14] LABS: SARS-COV2 (COVID) ANTIGEN,FIA Negative (Negative)
[2025-01-30] MEDS: ZOLPIDEM TARTRATE 10 MG TABLET PO PRN (02:05)
[2025-01-30 12:44] VITALS: BP 103/79; PULSE 84; RESP 19; TEMP 97.9; O2SAT 100
[2025-01-30] MEDS ORDERED: NICOTINE 21 MG/24 HOUR PATCH TD PRN (14:00)
[2025-01-30 21:22] VITALS: BP 109/61; PULSE 66; RESP 17; TEMP 97.3; O2SAT 100
[2025-01-31] MEDS: DIVALPROEX SODIUM 500 MG DR TABLET PO SCH (09:35)
[2025-01-31] MEDS: LITHIUM CARBONATE 300 MG CAPSULE PO SCH (09:36)
[2025-01-31] MEDS ORDERED: BENZOCAINE/MENTHOL [CEPACOL] LOZENGE PO PRN (10:00)
[2025-01-31] MEDS ORDERED: PETROLATUM,WHITE 28 GM JELLY TP PRN (10:00)
[2025-01-31] MEDS ORDERED: MAGNESIUM HYDROXIDE SUSPENSION 30 ML UDCUP PO PRN (10:00)
[2025-01-31] MEDS ORDERED: OMEPRAZOLE 20 MG CAPSULE PO PRN (10:00)
[2025-01-31] MEDS ORDERED: IBUPROFEN 600 MG TABLET PO PRN (10:00)
[2025-01-31] MEDS ORDERED: BACITRACIN 28 GM OINTMENT TP PRN (10:00)
[2025-01-31] MEDS ORDERED: DOCUSATE SODIUM 100 MG CAPSULE PO PRN (10:00)
[2025-01-31] MEDS ORDERED: ONDANSETRON 4 MG TABLET PO PRN (10:00)
[2025-01-31] MEDS ORDERED: MAG HYDROX/ALUMINUM HYD/SIMETH ES 30 ML SUSPENSION UDCUP PO PRN (10:00)
[2025-01-31] MEDS ORDERED: LOPERAMIDE HCL 2 MG CAPSULE PO PRN (10:00)
[2025-01-31] MEDS ORDERED: ALBUTEROL SULFATE HFA 90 MCG/PUFF 8 GM INHALER IH PRN (10:00)
[2025-01-31 12:08] VITALS: BP 94/60; PULSE 61; RESP 16; TEMP 97.9; O2SAT 97
[2025-01-31 22:06] VITALS: BP 103/64; PULSE 58; RESP 18; TEMP 97.9; O2SAT 99
[2025-02-01 08:56] VITALS: BP 102/66; PULSE 59; RESP 18; TEMP 98.2; O2SAT 96
[2025-02-01] MEDS ORDERED: DIVA500T2 PO (14:54)
[2025-02-01] MEDS ORDERED: LITH300C3 PO (14:54)
[2025-02-01] MEDS ORDERED: OLAN5TAB52 PO (14:54)
[2025-02-01] MEDS: ACETAMINOPHEN 325 MG TABLET PO PRN (16:01)
== END 2025-02-01 16:42 | disposition home or self-care (01) | DRG 761 ==
LOC: EMS 18:50 → 3EI 01-30 11:13
PROVIDERS: ADMIT Psychiatry & Neurology Psychiatry; ATTEND Psychiatry & Neurology Psychiatry
DX: F25.9 Schizoaffective disorder, unspecified (principal); R45.851 Suicidal ideations; F31.9 Bipolar disorder, unspecified; F19.10 Other psychoactive substance abuse, uncomplicated; G47.00 Insomnia, unspecified; Z20.822 Contact with and (suspected) exposure to COVID-19; F17.210 Nicotine dependence, cigarettes, uncomplicated; K59.00 Constipation, unspecified; F41.9 Anxiety disorder, unspecified; Z71.6 Tobacco abuse counseling; Z71.51 Drug abuse counseling and surveillance of drug abuser; Z88.0 Allergy status to penicillin; Z79.899 Other long term (current) drug therapy
CPT/HCPCS: 80048; 84703; 85025; 99285; G0480

== ENCOUNTER 2025-02-03 23:46 | Emergency (ER) | payer MEDICAID, OTHER ==
[~2025-02-03] VITALS: Ht 152.4 cm; Wt 54.5 kg
[~2025-02-03 23:46] MED LIST changes: -ARIP15TA27 PO; +DIVA500T2 PO; -DULO20CA23 PO; -GABA-1181 PO; +LITH300C3 PO; +OLAN5TAB52 PO
[2025-02-03 23:51] VITALS: TEMP 98.2
[2025-02-04 00:31] LABS: PLATELET COUNT (AUTO) 416 K/uL (150-450); RED BLOOD CELL COUNT(AUTO) 4.40 MIL/uL (4.00-5.20); RED CELL DISTRIBUTION WIDTH 15.0 % (11.5-14.5); WHITE BLOOD COUNT (AUTO) 7.6 K/uL (4.5-11.0)
[2025-02-04 00:32] LABS: CALCIUM, TOTAL 9.1 mg/dL (8.8-10.5); CREATININE 0.86 mg/dL (0.60-1.30); GLOMERULAR FILTR. RATE CALC > 60 mL/min (>60); GLUCOSE,RANDOM 148 mg/dL (70-110); SODIUM SERUM 138 mmol/L (136-145); UREA NITROGEN, BLOOD 8 mg/dL (7-18)
[2025-02-04 01:00] VITALS: BP 129/91; PULSE 92; RESP 18; O2SAT 100
[2025-02-04] MEDS ORDERED: DIVA500T2 PO (01:02)
[2025-02-04] MEDS ORDERED: OLAN5TAB52 PO (01:02)
[2025-02-04] MEDS ORDERED: LITH300C3 PO (01:02)
== END 2025-02-04 01:20 | disposition home or self-care (01) ==
LOC: EMS 23:46
DX: F41.9 Anxiety disorder, unspecified (principal); F25.9 Schizoaffective disorder, unspecified; F31.9 Bipolar disorder, unspecified; F17.210 Nicotine dependence, cigarettes, uncomplicated; F15.90 Other stimulant use, unspecified, uncomplicated; Z88.0 Allergy status to penicillin; Z79.899 Other long term (current) drug therapy
CPT/HCPCS: 99284; 80048; 85025; 36415; 93005; G0480